=== PATIENT | male | born 1945 | race Asian ===

== ENCOUNTER 2017-02-25 10:31 | Inpatient (IN) | payer OTHER ==
[~2017-02-25] VITALS: Ht 170.2 cm; Wt 64.4 kg
[2017-02-25] VITALS (13 sets, daily range): BP systolic 116–174; BP diastolic 45–71; PULSE 79–108; RESP 12–21; TEMP 98.1–98.7; O2SAT 93–100
--- NOTE | 2017-02-25 10:31 | NUR ---
Pt BIB ALS to ER bed 1 and gown. Placed on cardiac sonographer. Report given to CHAD Rodriguez.
--- NOTE | 2017-02-25 10:32 | NUR ---
Dr. Santnaa at bedside to assess pt.
--- NOTE | 2017-02-25 10:34 | NUR ---
EKG done read by Dr Santana.
--- NOTE | 2017-02-25 10:45 | NUR ---
lab drawn by rod greaser
--- NOTE | 2017-02-25 10:47 | NUR ---
pt BIB primary care nurse [id number], pt had a near syncopal episode after getting out the shower,assisted to the ground,no trama.pt is awake,alert,equal case investigator and pushes. no neuro deficit noted. feeling very weak, skin pale and dry.had right knee surgery last Thursday.burise around the knee and right thigh.dressing intact.
--- NOTE | 2017-02-25 10:52 | NUR ---
portable xay done at the bedside.
[2017-02-25] MEDS ORDERED: ISOS20TA8 PO (10:53)
[2017-02-25] MEDS ORDERED: TAMS-11 PO (10:53)
[2017-02-25] MEDS ORDERED: METO50TA7 PO (10:54)
[2017-02-25 10:59] LABS: BASOPHILS % (AUTO) 0.4 % (0.0-2.0); EOSINOPHILS # (AUTO) 0.2 K/uL (0.0-0.4); EOSINOPHILS % (AUTO) 1.7 % (0.0-4.0); HEMATOCRIT 25.8 % (36-54); LYMPHOCYTES # (AUTO) 1.2 K/uL (1.0-5.5); LYMPHOCYTES % (AUTO) 12.1 % (20.5-51.5); MEAN CORPUSCULAR HEMOGLOBIN 29 pg (27-31); MEAN CORPUSCULAR HGB CONC 33 % (32-36); MEAN CORPUSCULAR VOLUME 89 fL (79.0-98.0); MONOCYTES # (AUTO) 1.7 K/uL (0.0-1.0); MONOCYTES % (AUTO) 16.8 % (1.7-9.3); NEUTROPHILS # (AUTO) 6.8 K/uL (1.8-7.7); PLATELET COUNT (AUTO) 238 K/uL (130-430); RED CELL DISTRIBUTION WIDTH 12.7 % (9.0-15.0); WHITE BLOOD COUNT (AUTO) 9.9 K/uL (4.8-10.8)
[2017-02-25] MEDS ORDERED: METO25TA3 PO (11:00)
[2017-02-25] MEDS ORDERED: ACAR50TA PO (11:00)
[2017-02-25] MEDS ORDERED: PRO40 PO (11:00)
[2017-02-25] MEDS ORDERED: GLIP10TA11 PO (11:00)
[2017-02-25] MEDS ORDERED: SIMV40TA2 PO (11:00)
[2017-02-25] MEDS ORDERED: GLU850 PO (11:00)
--- NOTE | 2017-02-25 11:00 | NUR ---
Medication reconciliation completed with information provided by patient. Any prior medication reconciliation on file was reviewed and corrected.
--- NOTE | 2017-02-25 11:00 | NUR ---
Patient's home medication sent home with pt.'s , Briseyda.
[2017-02-25 11:01] LABS: HEMOGLOBIN 8.5 g/dL (14.0-18.0)
[2017-02-25 11:07] LABS: INR 0.9 (0.80-1.20); PROTHROMBIN TIME 10.2 SECS (9.5-12.5)
[2017-02-25 11:14] LABS: CALCIUM 8.1 mg/dL (8.4-11.0); CREATININE 1.21 mg/dL (0.55-1.30); POTASSIUM 4.2 mmol/L (3.5-5.1)
[2017-02-25 11:18] LABS: ALBUMIN 2.7 g/dL (3.4-4.8); TOTAL BILIRUBIN 0.8 mg/dL (0.0-1.0); TOTAL PROTEIN, SERUM 6.6 g/dL (6.4-8.3)
[2017-02-25] MEDS ORDERED: ASPIRIN 81 MG TAB.CHEW PO ONE (12:15)
--- NOTE | 2017-02-25 12:26 | NUR ---
MRSA swab sent to lab
--- NOTE | 2017-02-25 12:27 | NUR ---
order received from Dr vizcaino
--- NOTE | 2017-02-25 13:01 | NUR ---
bilateral dopper ultrasound of legs completed at the bedside,result is negative.Dr keya nelson.
--- NOTE | 2017-02-25 13:54 | NUR ---
Patient will be admitted to [facility]. Admitted to ICU] unit. Will go to room ICU 5 Belongings list completed. Summary report printed. Report will be given at bedside.
--- NOTE | 2017-02-25 13:55 | NUR ---
ADMISSION NOTES: Patient alert and oriented x 4. Able to make needs known verbally. Breathing even and unlabored. Sinus rhythm on the monitor. Afebrile. IV access on the left upper arm G22, patent and intact. No signs of redness or swelling on the IV site. Denies any pain or discomfort at this time. Bed in lowest level with 2 side rails up and bed brakes locked. Patient able to urinate using the urinal. All needs met. Placed call light within reach. at bedside. Will continue to monitor.
[2017-02-25 14:49] LABS: BILIRUBIN,URINE NEGATIVE (NEGATIVE); BLOOD, URINE NEGATIVE (NEGATIVE); CLARITY/URINE CLEAR (CLEAR); COLOR,URINE YELLOW (YELLOW); GLUCOSE,URINE 1+ (NEGATIVE); KETONES,URINE TRACE (NEGATIVE); LEUKOCYTE ESTERASE ,URINE NEGATIVE (NEGATIVE); NITRITE, URINE NEGATIVE (NEGATIVE); PROTEIN URINE TRACE (NEGATIVE)
[2017-02-25 14:59] LABS: BACTERIA,URINE FEW /HPF (None Seen); RBC,URINE 0-3 /HPF (0-3)
[2017-02-25 15:00] LABS: MUCUS,URINE 1+ /LPF (None Seen)
--- NOTE | 2017-02-25 15:25 | NUR ---
Called Dr. Franklin to ask for orders. Per Dr. Franklin, she's putting in orders right now and will be here in a little bit. Also, Dr. Franklin said that Dr. Law was notified for consult.
[2017-02-25] MEDS ORDERED: NITROGLYCERIN 1 INCH (GM) OINT. TP ONE (15:30)
[2017-02-25] MEDS ORDERED: ACETAMINOPHEN 325 MG TABLET PO PRN (15:30)
--- NOTE | 2017-02-25 17:00 | NUR ---
Pt's is upset. Pt's stated we are not doing anything for Pt. Informed Pt's that we spoke with Dr. Franklin when we paged her the first time around 1530 and updated her on the plan of care. Pt's insist we call Dr. Franklin. Dr. Franklin paged per Pt's . Currently awaiting returned phone.
[2017-02-25] MEDS: NACL 0.9% 1,000 ML IV SCH (17:06)
[2017-02-25] MEDS: INSULIN ASPART 100 UNITS/ML, 10 ML VIAL (NovoLOG) SUBCUT PRN (17:19)
--- NOTE | 2017-02-25 17:40 | NUR ---
MD VISIT: Dr. Franklin at bedside talking to patient and family.
[2017-02-25] MEDS ORDERED: ENOXAPARIN SODIUM 40 MG/0.4 ML SYRINGE SUBCUT ONE (18:00)
--- NOTE | 2017-02-25 18:02 | NUR ---
CHG: Patient and refused CHG bath stating that he just had a shower before coming to ER and that's actually when he almost fell.
[2017-02-25] MEDS ORDERED: ACARBOSE 50 MG TABLET ONE (18:08)
[2017-02-25] MEDS: ACARBOSE 50 MG TABLET PO SCH (18:10)
--- NOTE | 2017-02-25 18:26 | NUR ---
PATIENT UPDATE: Patient complaining of urinating often and is bothering him and asking if he can take flomax. Dr. Franklin is still in ICU and notified her of patient's request. Dr. Franklin ordered flomax to be given once. Order noted and carried out.
[2017-02-25] MEDS ORDERED: OXYCODONE/ACETAMINOPHEN 5-325 TABLET PO PRN ×2 (18:45)
[2017-02-25] MEDS ORDERED: TAMSULOSIN HCL 0.4 MG CAP PO ONE (19:00)
[2017-02-25 19:25] LABS: THYROID STIMULATING HORMONE 1.03 uIu/mL (0.36-3.74)
--- NOTE | 2017-02-25 20:01 | NUR ---
ULTRASOUND: Carotid ultrasound being done at this time.
--- NOTE | 2017-02-25 20:25 | NUR ---
CRITICAL LAB: Troponin taken at [address] Law. Awaiting for call back.
--- NOTE | 2017-02-25 20:40 | NUR ---
MD VISIT: Dr. Law at bedside talking to patient.
--- NOTE | 2017-02-25 20:45 | NUR ---
DR ROMAN campoverde here evaluating Pt.
--- NOTE | 2017-02-25 21:00 | NUR ---
ASSESSMENT Pt alert/ oriented to time, place and event. Speech clear. No c/o chest pain or pressure. HR in 90's. O2 sat above 97% on room air. IV site left AC 22ga no redness or swelling noted @ site. Right lower extremity with swelling, bruising noted lateral upper thigh and medial right knee. Dressing noted over anterior knee.
--- NOTE | 2017-02-25 21:06 | NUR ---
REPORT: Report given to CHAD Alvarez.
[2017-02-25 21:29] LABS: IRON (SERUM) 23 mcg/dL (59-158); TOTAL IRON BIND. CAPACITY 260 ug/dL (250-450)
[2017-02-25] MEDS: SIMVASTATIN 40 MG TABLET PO SCH (21:43)
[2017-02-25] MEDS: METOPROLOL SUCCINATE 25 MG TAB.SR.24H (TOPROL XL) PO SCH (21:44)
--- NOTE | 2017-02-25 22:10 | NUR ---
DR LAW D-Dimer level reported to Dr Law 2240ng/ml, orders received. 1. start O2 @ 2L/min nasal cannula 2. Rechecked Lovenox order with Dr Law Lovenox 1mg/Kg Q 12 Hr
[2017-02-25] MEDS ORDERED: COMMUNICATION ORDER XX ONE (22:15)
[2017-02-25] MEDS ORDERED: *LOVENOX 1MG/KG Q12H/PHARMACY XX SCH (23:00)
[2017-02-26] VITALS (22 sets, daily range): BP systolic 110–147; BP diastolic 53–117; PULSE 76–106; RESP 12–30; TEMP 96.8–98.3; O2SAT 95–100
[2017-02-26] MEDS: OXYCODONE/ACETAMINOPHEN 5-325 TABLET PO PRN ×2 (00:23→15:24)
[2017-02-26] MEDS: ENOXAPARIN SODIUM 60 MG/0.6 ML SYRINGE SUBCUT SCH ×2 (02:30→12:09)
[2017-02-26] MEDS: INSULIN ASPART 100 UNITS/ML, 10 ML VIAL (NovoLOG) SUBCUT PRN ×4 (06:16→20:43)
[2017-02-26] MEDS: NACL 0.9% 1,000 ML IV SCH (06:18)
[2017-02-26 06:45] LABS: BASOPHILS % (AUTO) 0.5 % (0.0-2.0); EOSINOPHILS # (AUTO) 0.4 K/uL (0.0-0.4); EOSINOPHILS % (AUTO) 4.8 % (0.0-4.0); HEMATOCRIT 25.5 % (36-54); HEMOGLOBIN 8.3 g/dL (14.0-18.0); LYMPHOCYTES # (AUTO) 1.7 K/uL (1.0-5.5); LYMPHOCYTES % (AUTO) 22.7 % (20.5-51.5); MEAN CORPUSCULAR HEMOGLOBIN 29 pg (27-31); MEAN CORPUSCULAR HGB CONC 32 % (32-36); MEAN CORPUSCULAR VOLUME 89 fL (79.0-98.0); MONOCYTES # (AUTO) 1.2 K/uL (0.0-1.0); MONOCYTES % (AUTO) 15.7 % (1.7-9.3); NEUTROPHILS # (AUTO) 4.3 K/uL (1.8-7.7); NEUTROPHILS % (AUTO) 56.3 % (40.0-70.0); PLATELET COUNT (AUTO) 271 K/uL (130-430); RED BLOOD CELL COUNT(AUTO) 2.87 MIL/uL (4.2-6.2); RED CELL DISTRIBUTION WIDTH 12.8 % (9.0-15.0); WHITE BLOOD COUNT (AUTO) 7.6 K/uL (4.8-10.8)
[2017-02-26 07:25] LABS: POTASSIUM 4.5 mmol/L (3.5-5.1)
[2017-02-26 07:26] LABS: CALCIUM 8.6 mg/dL (8.4-11.0)
--- NOTE | 2017-02-26 07:30 | NUR ---
RECEIVED PT UP IN BED. AWAKE, ALERT, ORIENTED X4. BREATHING IS EVEN AND UNLABORED ON 2L/MIN, NC. NO ACUTE DISTRESS. IVF INFUSING WITHOUT DIFFICULTY TO LAC, #18. NO REDNESS, NO SWELLING AT INSERTION SITE. RT KNEE WITH BANDAGE IN PLACE S/P RT TOTAL KNEE ARTHROPLASTY AT [place]. BRUISING AND SWELLING NOTED - CONSISTENT WITH REPORT RECEIVED. UPDATED WHITE BOARD WITH TODAYS DATE AND STAFF INFORMATION. ENCOURAGED PT TO CALL ME WITH ANY NEEDS.
[2017-02-26 07:32] LABS: ALBUMIN 2.7 g/dL (3.4-4.8); CREATININE 0.93 mg/dL (0.55-1.30); TOTAL BILIRUBIN 0.9 mg/dL (0.0-1.0); TOTAL PROTEIN, SERUM 6.8 g/dL (6.4-8.3)
[2017-02-26 07:33] LABS: THYROID STIMULATING HORMONE 0.97 uIu/mL (0.34-4.82)
--- NOTE | 2017-02-26 07:50 | NUR ---
HERE DR OWENS HERE TO ASSESS PT. SPOKE WITH FAMILY AT BEDSIDE. MADE MD AWARE OF CRITICAL TROPONIN LEVELS. ORDERS NOTED.
[2017-02-26] MEDS: ACARBOSE 50 MG TABLET PO SCH ×3 (08:10→17:48)
--- NOTE | 2017-02-26 08:44 | NUR ---
Nutrition Update Leo scale of 18 (02/26/17 0400) noted. Pt admitted for: Syncope, Anemia, Acute Myocardial Infarction. Diet: [facility] BMI: 22.2kg/m2 RD to follow per nutrition care standards.
--- NOTE | 2017-02-26 08:45 | NUR ---
ECHOCARDIOGRAM FINISH CARPENTER AT BEDSIDE PERFORMING ECHOCARDIOGRAM. PT TOLERATING PROCEDURE WELL.
--- NOTE | 2017-02-26 08:51 | NUR ---
Case Mgt: Per Dr. Law, pt is stable cardiac-burroughs for transfer to [facility] if ok with Dr. Franklin-Nurse Carlin notified-she will call Dr. Franklin-- RN
[2017-02-26] MEDS ORDERED: ASPIRIN 81 MG TAB.CHEW PO SCH (09:00)
[2017-02-26] MEDS ORDERED: METOPROLOL SUCCINATE 50 MG TAB.SR.24H (TOPROL XL) PO SCH (09:00)
[2017-02-26] MEDS ORDERED: TAMSULOSIN HCL 0.4 MG CAP PO SCH (09:00)
[2017-02-26] MEDS ORDERED: PANTOPRAZOLE SODIUM 40 MG TAB PO SCH (09:00)
--- NOTE | 2017-02-26 09:46 | NUR ---
Discharge Planning Received stable for transfer order from Dr Franklin. Faxed order along with 24 hr report, H&P and Cardio Consult to [facility] [phone]. Called [facility] [phone] and left a message for JOAQUIN Ponce to return my call. Met with patient and , Briseyda [phone], at bedside to update them with plan of care. states she is an OR nurse at [facility]. Patient is agreeable to transfer to a [facility] or possibly [place] if indicated by . Addendum: 02/26/17 at 1019 by Imelda Simeon DP Ordered Radiology CD. Placed transportation packet in nurses station.
--- NOTE | 2017-02-26 10:45 | NUR ---
CT SCAN PT'S FAMILY REFUSING CT SCAN. REQUESTING VQ SCAN INSTEAD. CALLED DR SANTOSH SARKAR PT CAN HAVE CT SCAN HERE OR FOLLOW UP WITH [facility] FOR VQ SCAN. NO NEW ORDERS. MADE FAMILY AWARE AND THEY WILL REFUSE CT AND FOLLOW UP WITH [facility] FOR VQ SCAN.
--- NOTE | 2017-02-26 11:01 | NUR ---
MD HERE DR URIARTE, PCP HERE TO SEE PT. ASSESSED PT AND SPOKE WITH FAMILY AT BESIDE REGARDING POC. FAMILY VERBALIZED UNDERSTANDING. NEW ORDERS NOTED.
--- NOTE | 2017-02-26 12:30 | NUR ---
RN ROUNDS BLOOD SUGAR ASSESSED VIA FINGERSTICK. ADMIN INSULIN PER S/S. PT TOLERATED WELL. LUNCH TRAY SET UP. COMFORT MEASURES PROVIDED. ENCOURAGED PT TO CALL FOR ANY NEEDS.
--- NOTE | 2017-02-26 13:50 | NUR ---
CHG CHG PROVIDED BY THREE PARK AIDE STUDENTS FROM [facility] WITH RN SUPERVISION. LINEN CHANGED, NEW GOVILLA PROVIDED.
--- NOTE | 2017-02-26 15:40 | NUR ---
[place] of Care Received report from Raegan BONILLA. Received patient AAOx4, able to verbalize needs. IV 18G LAC intact, patent, no infiltration or erythema noted. Patient c/o pain 7/10 on R knee. Provided patient with ice pack and medicated with PRN percocet per MD order. Family present at bedside. Will continue to monitor.
--- NOTE | 2017-02-26 17:40 | NUR ---
[place] Received phone call from Jovan, charge master coordinator for [place]. Per Jovan, patient is to be transferred to [facility] to CCU room [address] Meenakshi Jeter, clerk specialist. Transfer report to be given to receiving nurse at [phone]. supervising floorperson time will be at 2100 via critical care or other ambulance.
--- NOTE | 2017-02-26 18:44 | NUR ---
Closing No acute changes noted. Patient denies any pain or discomfort at this time. Family at bedside. Patient notified of transfer tonight to [facility]. Transfer consent signed. R knee dressing intact, no drainage noted. IV 18G L AC intact, patent, no infiltration or erythema noted. Bed locked in lowest position. Call light in reach. Will endorse plan of care to retail sales assistant nurse.
[2017-02-26] MEDS: METOPROLOL SUCCINATE 25 MG TAB.SR.24H (TOPROL XL) PO SCH (20:41)
[2017-02-26] MEDS: SIMVASTATIN 40 MG TABLET PO SCH (20:41)
--- NOTE | 2017-02-26 21:09 | NUR ---
TRANSFER [facility] PT transferred to [facility], via PRN ACLS. Pt alert/oriented to self, time and place. IV fluids infusing left ac no redness or swelling noted. IV fluids held for transfer. No c/o chest pain or SOB. Pt in SR, Report given to Lai BONILLA @ [facility] CCU dept.
[2017-02-27 12:53] LABS: FOLATE (FOLIC ACID) 8.9 ng/mL (>3.0)
== END 2017-02-26 21:09 | disposition short-term general hospital (02) | DRG 281 ==
LOC: SED 10:31 → SIC 12:24
PROVIDERS: ADMIT Internal Medicine; ATTEND Internal Medicine
DX: I21.3 ST elevation (STEMI) myocardial infarction of unspecified site (principal); E87.1 Hypo-osmolality and hyponatremia; E44.0 Moderate protein-calorie malnutrition; D64.9 Anemia, unspecified; E11.9 Type 2 diabetes mellitus without complications; E78.5 Hyperlipidemia, unspecified; I10 Essential (primary) hypertension; I25.10 Atherosclerotic heart disease of native coronary artery without angina pectoris; Z96.651 Presence of right artificial knee joint; R55 Syncope and collapse; N40.0 Benign prostatic hyperplasia without lower urinary tract symptoms; Z90.49 Acquired absence of other specified parts of digestive tract; Z88.8 Allergy status to other drugs, medicaments and biological substances; Z95.1 Presence of aortocoronary bypass graft; Z87.891 Personal history of nicotine dependence; Z79.82 Long term (current) use of aspirin; Z79.899 Other long term (current) drug therapy; Z79.84 Long term (current) use of oral hypoglycemic drugs; Z68.22 Body mass index [BMI] 22.0-22.9, adult
CPT/HCPCS: 36415; 71010; 80048; 80053; 80061; 81000-TC; 82607; 82746; 82962; 83540-TC; 83550-TC; 83880; 84443-TC; 84484; 85025; 85379; 85610-TC; 85730-TC; 87081; 93005; 93306; 93880; 93970; 99285; J1650; J1815; J7030